=== PATIENT | female | born 1970 | race Caucasian/White ===

== ENCOUNTER 2017-03-23 05:52 | Day surgery (SDC) | payer OTHER ==
[~2017-03-23] VITALS: Ht 160 cm; Wt 59.0 kg
[~2017-03-23 05:52] MED LIST: IBUP-2213 PO
[2017-03-23] MEDS ORDERED: IBUPROFEN 800 MG TAB PO PRN (08:30)
[2017-03-23] MEDS ORDERED: MORPHINE SULFATE 4 MG/ML SYR IM/IVP PRN (08:30)
[2017-03-23] MEDS ORDERED: ONDANSETRON 4 MG/2 ML VIAL IVP PRN (08:30)
[2017-03-23] MEDS ORDERED: ACETAMINOPHEN/CODEINE 300/30MG 1 TAB PO PRN (08:30)
[2017-03-23 08:36] LABS: ALBUMIN 3.4 g/dL (3.4-5.0); ANION GAP 10.8 (8-16); CALCIUM 8.1 mg/dL (8.5-10.1); CARBON DIOXIDE 28.8 mmol/L (21-32); CREATININE 0.7 mg/dL (0.6-1.3); POTASSIUM 3.6 mmol/L (3.5-5.1); TOTAL BILIRUBIN 0.4 mg/dL (0.0-1.0); TOTAL PROTEIN, SERUM 6.7 g/dL (6.4-8.2)
[2017-03-23] MEDS ORDERED: FERR325E14 PO (09:07)
[2017-03-23] MEDS ORDERED: PROPOFOL 200 MG/20 ML VIAL IV ONE (10:37)
[2017-03-23] MEDS ORDERED: fentaNYL 0.05 MG/ML VIAL ONE (10:41)
[2017-03-23] MEDS ORDERED: MIDAZOLAM 2 MG/2 ML VIAL ONE (10:41)
[2017-03-23] MEDS ORDERED: MIDAZOLAM 2 MG/2 ML VIAL IV ONE ×2 (10:55)
[2017-03-23] MEDS ORDERED: MORPHINE SULFATE 2 MG/ML SYR IVP PRN ×2 (10:55)
[2017-03-23] MEDS ORDERED: MORPHINE SULFATE 4 MG/ML SYR IVP PRN ×4 (10:55)
[2017-03-23] MEDS ORDERED: METOCLOPRAMIDE 10 MG/2 ML INJ VIAL IVP PRN ×2 (10:55)
== END 2017-03-23 13:05 | disposition home or self-care (01) ==
LOC: MDS 05:52 → MMU 05:57 → MDS 13:05
PROVIDERS: ATTEND Obstetrics & Gynecology
DX: N92.1 Excessive and frequent menstruation with irregular cycle (principal); Z98.890 Other specified postprocedural states; Z79.899 Other long term (current) drug therapy
CPT/HCPCS: 36415; 58120; 80053; 93005; J2250; J2704; J3010; J7120

== ENCOUNTER 2017-10-12 06:12 | Day surgery (SDC) | payer OTHER ==
[~2017-10-12] VITALS: Ht 160 cm; Wt 68.5 kg
[~2017-10-12 06:12] MED LIST changes: +FERR325E14 PO
[2017-10-12] MEDS ORDERED: ONDANSETRON 4 MG/2 ML VIAL IVP PRN (07:25)
[2017-10-12] MEDS ORDERED: MORPHINE SULFATE 4 MG/ML SYR IM/IVP PRN (07:25)
[2017-10-12] MEDS ORDERED: ONDANSETRON 4 MG/2 ML VIAL IVP ONE (07:25)
[2017-10-12] MEDS ORDERED: ePHEDrine 50 MG/ML VIAL IV ONE (07:25)
[2017-10-12] MEDS ORDERED: IBUPROFEN 800 MG TAB PO PRN (07:25)
[2017-10-12] MEDS ORDERED: PROPOFOL 200 MG/20 ML VIAL IV ONE (07:25)
[2017-10-12] MEDS ORDERED: ACETAMINOPHEN/CODEINE 300/30MG 1 TAB PO PRN (07:25)
[2017-10-12] MEDS ORDERED: SEVOFLURANE 250 ML BTL INH ONE (07:25)
[2017-10-12] MEDS ORDERED: fentaNYL 0.05 MG/ML VIAL ONE (07:37)
[2017-10-12] MEDS ORDERED: MIDAZOLAM 2 MG/2 ML VIAL ONE (07:37)
[2017-10-12] MEDS ORDERED: MORPHINE SULFATE 4 MG/ML SYR IVP PRN ×2 (08:05)
[2017-10-12] MEDS ORDERED: MORPHINE SULFATE 2 MG/ML SYR IVP PRN (08:05)
[2017-10-12] MEDS ORDERED: MIDAZOLAM 2 MG/2 ML VIAL IV ONE (08:05)
[2017-10-12] MEDS ORDERED: MORPHINE SULFATE 4 MG/ML SYR ONE (08:47)
== END 2017-10-12 10:45 | disposition home or self-care (01) ==
LOC: MDS 06:12 → MMU 06:13 → MDS 10:45
PROVIDERS: ATTEND Obstetrics & Gynecology
DX: N92.1 Excessive and frequent menstruation with irregular cycle (principal); D64.9 Anemia, unspecified; E66.01 Morbid (severe) obesity due to excess calories; Z91.09 Other allergy status, other than to drugs and biological substances; Z98.890 Other specified postprocedural states; Z79.899 Other long term (current) drug therapy
CPT/HCPCS: 36415; 58563; 84702; J2250; J2270; J2405; J2704; J3010; J7120